=== PATIENT | female | born 1940 | race Caucasian/White ===

== ENCOUNTER 2021-05-29 11:39 | Emergency (ER) | payer MEDICARE ==
[2021-05-29 12:03] VITALS: BP 175/56
--- NOTE | 2021-05-29 12:40 | ED Physician Documentation ---
PD HPI LOWER EXT INJURY - Stated complaint Stated Complaint: LT LEG PAIN - Chief complaint Chief Complaint: Ext Problem - History obtained from History obtained from: Patient (81-year-old woman on Xarelto twisted her knee 3 days ago and has persistent posterior knee pain ever since. Difficult to walk and especially to go downstairs. No other injuries.) Review of Systems Constitutional: reports: Reviewed and negative Eyes: reports: Reviewed and negative Ears: reports: Reviewed and negative Nose: reports: Reviewed and negative Throat: reports: Reviewed and negative Cardiac: reports: Reviewed and negative PD PAST MEDICAL HISTORY - Allergies Allergies/Adverse Reactions: Allergies Allergy/AdvReac Type Severity Reaction Status Date / Time No Known Drug Allergies Allergy Verified 05/29/21 12:04 PD ED PE NORMAL - Vitals Vital signs reviewed: Yes - General General: Alert and oriented X 3, No acute distress - Extremities Extremities: Other (Left knee has a small effusion. There is no bony tenderness. ACL, PCL, MCL, LCL are tight without laxity. She is able to bend it a little past 90 degrees and extend it all the way.) - Neuro Neuro: Alert and oriented X 3, Normal speech Results - Vitals Vitals: Vital Signs - 24 hr 05/29/21 12:00 Temperature 36.2 C L Heart Rate 63 Respiratory 16 Rate Blood Pressure 175/56 H O2 Saturation 98 Oxygen O2 Source Room air - Rads (name of study) 2 view x-ray of the left knee was unremarkable Radiology: EMP read contemporaneously PD MEDICAL DECISION MAKING - ED course ED course: I suspect she has a small hemarthrosis in the joint, her range of motion is pretty good and we discussed the pros and cons of arthrocentesis for same and she declined after discussion. I think she will heal fine with conservative measures and a knee brace. Departure - Departure Disposition: 01 Home, Self Care Clinical Impression: Strain of left knee Qualifiers: Encounter type: initial encounter Qualified Code(s): S86.912A - Strain of unspecified muscle(s) and tendon(s) at lower leg level, left leg, initial encounter Condition: Good Record reviewed to determine appropriate education?: Yes Instructions: ED Effusion Knee Comments: Keep the splint on when you are up and around, you do not need to wear it bathing or while sleeping. Tylenol as needed for pain. Return for new or worsening symptoms. Follow-up with your doctor after your trip to [place] if not improved.
--- NOTE | 2021-05-29 12:54 | XRAY Report ---
PROCEDURE: Knee 2 View LT INDICATIONS: Trauma, left knee pain TECHNIQUE: 2 views of the left knee COMPARISON: None. FINDINGS: Bones: No fractures or dislocations. No suspicious bony lesions. Mild joint space narrowing. Soft tissues: No joint effusion. No suspicious soft tissue calcifications. IMPRESSION: No acute finding. Reviewed by: Marek Brito MD on 05/29/2021 12:53 PM PDT Approved by: Marek Brito MD on 05/29/2021 12:53 PM PDT Station ID: [id number]
== END 2021-05-29 13:26 | disposition home or self-care (01) ==
LOC: ED 11:39
DX: S86.912A Strain of unspecified muscle(s) and tendon(s) at lower leg level, left leg, initial encounter (principal); X50.1XXA Overexertion from prolonged static or awkward postures, initial encounter; Z79.01 Long term (current) use of anticoagulants
CPT/HCPCS: 99282; 99283

== ENCOUNTER 2023-02-15 14:15 | Emergency (ER) | payer MEDICARE, OTHER ==
[2023-02-15 14:44] VITALS: BP 167/66
[2023-02-15] MEDS ORDERED: TETANUS/DIPHTHERIA/PERTUSSIS 0.5 ML SYRINGE IM ONE (15:01)
--- NOTE | 2023-02-15 15:03 | ED Physician Documentation ---
History of Present Illness - Stated complaint Stated Complaint: LT LEG INJ - Chief complaint Chief Complaint: Laceration - Additonal information Additional information: 82-year-old female who is visiting [facility] for the summer presents emergency department for evaluation of acute left lower leg injury. She was visiting a friend's garden when a metal garden spike tore a chunk of soft tissue out of her lower leg. She is anticoagulated on Xarelto secondary to history of A-fib. Bleeding is controlled. She is uncertain of her last tetanus status. Review of Systems Skin: reports: Lesions PD PAST MEDICAL HISTORY - Allergies Allergies/Adverse Reactions: Allergies Allergy/AdvReac Type Severity Reaction Status Date / Time Sulfa (Sulfonamide Allergy Unknown Verified 02/15/23 14:43 Antibiotics) - Social History Does the pt smoke?: No Smoking Status: Never smoker PD ED PE EXPANDED - General General: Alert, No acute distress - Extremities Extremities: Left leg (Large 2 x 2 centimeter tissue avulsion left lower lateral anterior leg with some exposed fatty tissue. Wound was thoroughly cleansed with chlorhexidine and irrigated with 500 mL of normal saline. Bacitracin, nonstick gauze and Coban then applied) Results - Vitals Vitals: Vital Signs - 24 hr 02/15/23 14:36 Temperature 36.5 C Heart Rate 61 Respiratory 18 Rate Blood Pressure 167/66 H O2 Saturation 97 Oxygen O2 Source Room air PD Medical Decision Making - ED course Complexity details: d/w patient ED course: 82-year-old female here with a large tissue avulsion left lower lateral anterior leg sustained when a garden spike accidentally punctured her rios. She is a mbulatory. Tetanus was updated today. Unfortunately this wound is not amenable to primary closure. The wound was thoroughly cleansed with chlorhexidine and irrigated with saline. Bacitracin, nonstick bandage and Coban was then applied over the wound. The wound was no longer actively bleeding. I discussed with the patient that this will likely take weeks to resolve on its own. However given her age I think she would likely benefit from wound therapy referral and have advised her to follow closely with one of our local walk-in clinics on Saturday in order to obtain obtain this referral. The usual wound care and emergent return precautions for concerns of infection was discussed. Departure - Departure Disposition: 01 Home, Self Care Clinical Impression: Avulsion of skin of lower leg Qualifiers: Encounter type: initial encounter Laterality: left Qualified Code(s): S81.802A - Unspecified open wound, left lower leg, initial encounter Condition: Stable Record reviewed to determine appropriate education?: Yes Comments: Michelle the tissue defect on your lower leg is called a large skin avulsion. It also contains a puncture wound. We did clean and irrigate the wound today. Your tetanus was updated today. I would like you to gently cleanse this wound with warm soap and water each day. Then apply a thin layer of bacitracin, then nonstick gauze and Coban. I would like you to follow-up at one of our local walk-in clinics either in [place] or [place], which ever is closest to you in the next few days in order to ask for referral to wound therapy to help monitor progression of this wound and help continue to treat it. Return to the ER if you develop any fevers, have worsening symptoms, milky drainage from your wound or significant swelling surrounding it.
== END 2023-02-15 15:22 | disposition home or self-care (01) ==
LOC: ED 14:15
DX: S81.802A Unspecified open wound, left lower leg, initial encounter (principal); W27.1XXA Contact with garden tool, initial encounter; Z23 Encounter for immunization; Z71.85 Encounter for immunization safety counseling
CPT/HCPCS: 90471; 99283